=== PATIENT | female | born 1970 | race Caucasian/White ===

== ENCOUNTER 2018-10-18 11:34 | Day surgery (SDC) | payer OTHER | END 2018-10-18 15:30 | disposition home or self-care (01) | LOC: AMB-ENDOS 11:34 | DX: D12.0 Benign neoplasm of cecum (principal); K64.8 Other hemorrhoids ==

== ENCOUNTER 2020-08-22 07:04 | Outpatient (CLI) | payer OTHER ==
[2020-08-26] MEDS ORDERED: LOSARTAN POTASS25 MG PO (08:34)
[2020-08-26] MEDS ORDERED: SINGULAIR4 M1 PO (08:34)
[2020-08-26] MEDS ORDERED: ZYRTEC10 M3 PO (08:35)
[2020-08-26] MEDS ORDERED: [UNRECOGNIZED DRUG - OTHER] (08:36)
[2020-08-26] MEDS ORDERED: FLUTIC (08:36)
[2020-08-26] MEDS ORDERED: TYLENOL EXTRA500 MG PO (08:37)
[2020-08-26] MEDS ORDERED: PROBIOTIC1 EAC2 PO (08:38)
[2020-08-26] MEDS ORDERED: VITAMIN C100 MG (08:39)
[2020-08-26] MEDS ORDERED: VITAMIN D-40010 MCG PO (08:39)
[2020-08-26] MEDS ORDERED: VITAMIN C100 MG PO (08:39)
== END 2020-08-22 07:10 | disposition home or self-care (01) ==
LOC: LAB 07:04
PROVIDERS: ATTEND Obstetrics & Gynecology
DX: D68.8 Other specified coagulation defects (principal); I10 Essential (primary) hypertension; Z03.818 Encounter for observation for suspected exposure to other biological agents ruled out; N91.1 Secondary amenorrhea

== ENCOUNTER 2020-08-29 09:06 | Day surgery (SDC) | payer OTHER ==
[~2020-08-29 09:06] MED LIST: FLUTIC; LOSARTAN POTASS25 MG PO; PROBIOTIC1 EAC2 PO; SINGULAIR4 M1 PO; TYLENOL EXTRA500 MG PO; VITAMIN C100 MG; VITAMIN C100 MG PO; VITAMIN D-40010 MCG PO; ZYRTEC10 M3 PO; [UNRECOGNIZED DRUG - OTHER]
[2020-08-29] MEDS ORDERED: PERCOCET 5-3251 EACH PO (15:14)
== END 2020-08-29 18:00 | disposition home or self-care (01) ==
LOC: CIR.AMB 09:06
PROVIDERS: ATTEND Obstetrics & Gynecology
DX: K38.8 Other specified diseases of appendix (principal); D25.2 Subserosal leiomyoma of uterus; Z20.828 Contact with and (suspected) exposure to other viral communicable diseases